=== PATIENT | female | born 1990 | race Caucasian/White ===

== ENCOUNTER 2018-05-13 10:30 | Emergency (ER) | payer MEDICAID ==
--- NOTE | 2018-05-13 11:11 | EDPHY ---
H & P Stated Complaint: L ear/head ache Time Seen by Provider: 05/13/18 10:48 HPI/ROS: CHIEF COMPLAINT: Left-sided headache, otalgia HISTORY OF PRESENT ILLNESS: 27-year-old female via private vehicle complaining of atraumatic left otalgia and left headache, for the past 1 week with new onset tinnitus. No URI symptoms. No sore throat. No otorrhea. No hearing loss. She is followed with screening MRIs every 2 years, last obtained in 2016 at [facility] given her family history of intracranial malignancy. The studies have been negative. PRIMARY CARE PROVIDER: REVIEW OF SYSTEMS: 10 systems reviewed and negative with the exception of the elements mentioned in the history of present illness PAST MEDICAL & SURGICAL HISTORY: No pertinent medical or surgical history SOCIAL HISTORY: Nonsmoker FAMILY HISTORY: Father and paternal grandfather both history of intracranial malignancy PHYSICAL EXAM (Prior to examination, patient consented to physical exam, hands were washed and my usual and customary physical exam procedures followed) 1) GENERAL: Well-developed, well-nourished, alert and oriented. Appears to be in no acute distress. 2) HEAD: Normocephalic, atraumatic 3) HEENT: Pupils equal, round, reactive to light bilaterally. Sclera anicteric. Nasopharynx, oropharynx, clear, no lesions. Moist Mucous membranes. No tonsillar enlargement or exudate. No trismus or drooling. No tenderness to percussion of the frontal or maxillary sinuses. Bilateral ear:, nonbulging non erythematous tympanic membrane with no effusion. No pain with movement of the auricle. Hearing symmetrical. 4) NECK: Full range of motion, no meningeal signs. 5) LUNGS: Clear auscultation bilaterally, no wheezes, no rhonchi, no retractions. 6) HEART: Regular rate and rhythm, no murmur, no heave, no gallop. 7) ABDOMEN: No guarding, no rebound, no focal tenderness, negative McBurney's, negative Shetty's, negative Rovsing's, negative peritoneal sign, 8) MUSCULOSKELETAL: Moving all extremities, no focal areas of tenderness, no obvious trauma. No peripheral edema or discoloration. 9) BACK: No CVA tenderness, no midline vertebral tenderness, no fluctuance, no step-off, no obvious trauma, no visual or palpable abnormality. 10) SKIN: No rash, no petechiae. 11) Psychiatric: Patient is oriented X 3, there is no agitation. 12) NEURO: Awake, alert, and oriented to person, place and time. Answers questions appropriately. There were no obvious focal neurologic abnormalities. No cerebellar dysfunction. Cranial nerves 2 through to 12 intact. Normal steady gait. Upper and lower extremities bilaterally with strength 5 / 5, reflexes 2+. DIFFERENTIAL DIAGNOSIS: In no particular order include but limited to acute sinusitis, otitis media, otitis externa, mastoiditis, acoustic neuroma, intracranial malignancy - Personal History LMP (Females 10-55): 15-21 Days Ago Current Tetanus/Diphtheria Vaccine: Yes - Medical/Surgical History Hx Asthma: No Hx Chronic Respiratory Disease: Yes Hx Diabetes: No Hx Cardiac Disease: No Hx Renal Disease: No Hx Cirrhosis: No Hx Alcoholism: No Other PMH: Churg struass syndrome, - Social History Smoking Status: Never smoked Constitutional: Initial Vital Signs Temperature (C) 36.7 C 05/13/18 10:41 Heart Rate 67 05/13/18 10:41 Respiratory Rate 18 05/13/18 10:41 Blood Pressure 127/96 H 05/13/18 10:41 O2 Sat (%) 96 05/13/18 10:41 O2 Delivery Mode Room Air Allergies/Adverse Reactions: amoxicillin Allergy (Verified 05/13/18 10:45) Penicillins Allergy (Verified 05/13/18 10:45) Sulfa (Sulfonamide Antibiotics) Allergy (Verified 05/13/18 10:45) Home Medications: Medication Instructions Recorded Benadryl 05/13/18 Nucala 05/13/18 Prednisone 05/13/18 Proair Hfa 05/13/18 Qvar Redihaler 05/13/18 Spiriva Handihaler 05/13/18 Symbicort 80-4.5 Mcg Inhaler 05/13/18 Medical Decision Making - Diagnostics Imaging Results: Imaging Impressions Brain MRI 05/13/18 11:11 Impression: Normal MR of the brain and IAC's . No evidence for left IAC schwannoma. Images reviewed myself ED Course/Re-evaluation: 11:09 a.m.: Care of patient under supervision of secondary supervising physician Dr Isaacs with whom I discussed case at this time. Given the patient's significant family history of intracranial malignancy, given her lack of obvious signs of infection such as otitis media otitis externa, new onset pain, new onset tinnitus, recommended MRI. Indications risks benefits discussed with patient and she consents. 12:51 p.m.: Re-evaluation discussed her normal MRI no evidence of malignancy no evidence of schwannoma. She remains with an intact neurologic examination. We discussed possible etiologies for symptoms. Wound recommend Sudafed for decongestion. - Data Points Laboratory Results: Laboratory Results 05/13/18 11:25 05/13/18 11:25 05/13/18 05/13/18 05/13/18 11:25 11:25 11:25 WBC 10.39 10^3/uL H 10^3/uL (3.80-9.50) RBC 4.80 10^6/uL 10^6/uL (4.18-5.33) Hgb 14.7 g/dL g/dL (12.6-16.3) Hct 42.5 % % (38.0-47.0) MCV 88.5 fL fL (81.5-99.8) MCH 30.6 pg pg (27.9-34.1) MCHC 34.6 g/dL g/dL (32.4-36.7) RDW 12.6 % % (11.5-15.2) Plt Count 256 10^3/uL 10^3/uL (150-400) MPV 10.6 fL fL (8.7-11.7) Neut % (Auto) 93.9 % H % (39.3-74.2) Lymph % (Auto) 4.3 % L % (15.0-45.0) Garrard % (Auto) 0.8 % L % (4.5-13.0) Eos % (Auto) 0.0 % L % (0.6-7.6) Baso % (Auto) 0.3 % % (0.3-1.7) Nucleat RBC Rel Count 0.0 % % (0.0-0.2) Absolute Neuts (auto) 9.76 10^3/uL H 10^3/uL (1.70-6.50) Absolute Lymphs (auto) 0.45 10^3/uL L 10^3/uL (1.00-3.00) Absolute Monos (auto) 0.08 10^3/uL L 10^3/uL (0.30-0.80) Absolute Eos (auto) 0.00 10^3/uL L 10^3/uL (0.03-0.40) Absolute Basos (auto) 0.03 10^3/uL 10^3/uL (0.02-0.10) Absolute Nucleated RBC 0.00 10^3/uL 10^3/uL (0-0.01) Immature Gran % 0.7 % % (0.0-1.1) Immature Gran # 0.07 10^3/uL 10^3/uL (0.00-0.10) RBC/WBC/PLT Morphology TNP Platelet Estimate TNP Sodium 139 mEq/L mEq/L (135-145) Potassium 4.3 mEq/L mEq/L (3.3-5.0) Chloride 107 mEq/L mEq/L (97-110) Carbon Dioxide 21 mEq/l L mEq/l (22-31) Anion Gap 11 mEq/L mEq/L (8-16) BUN 15 mg/dL mg/dL (7-23) Creatinine 0.8 mg/dL mg/dL (0.6-1.0) Estimated GFR > 60 Glucose 102 mg/dL H mg/dL (70-100) Calcium 9.4 mg/dL mg/dL (8.5-10.4) Beta HCG, Qual NEGATIVE Departure - Departure Disposition: Home, Routine, Self-Care Clinical Impression: Headache Qualifiers: Headache type: other headache syndrome Qualified Code(s): G44.89 - Other headache syndrome Condition: Fair Instructions: Acute Headache (ED) Additional Instructions: THANK YOU FOR YOUR VISIT TO OUR EMERGENCY DEPARTMENT (ED). YOU WERE SEEN TODAY BECAUSE OF A HEADACHE. YOU MAY HAVE HAD LAB TESTS, A CT SCAN, MRI OR EVEN A LUMBAR PUNCTURE (COMMONLY REFERRED TO A SPINAL TAP). WE CANNOT ALWAYS FIND THE EXACT CAUSE OF YOUR SYMPTOMS DURING YOUR VISIT TO THE ED. PLEASE FOLLOW UP WITH YOUR DOCTOR WITHIN 24 HOURS TO BE RECHECKED. RETURN TO THE ED IMMEDIATELY IF YOUR HEADACHE WORSENS, IF YOU DEVELOP A FEVER, NECK PAIN OR NECK STIFFNESS, OR IF YOU BECOME CONFUSED OR ABNORMALLY DROWSY. . Your MRI today was negative Referrals: Leonard Longoria MD [Medical Doctor] - As per Instructions
[2018-05-13 11:35] LABS: PLATELET COUNT 256 10^3/uL (150-400)
[2018-05-13] MEDS ORDERED: GADOBUTROL 10 ML VIAL IVP ONE (11:38)
[2018-05-13 12:36] VITALS: BP 113/80
== END 2018-05-13 13:16 | disposition home or self-care (01) ==
DX: R51 Headache (principal)
CPT/HCPCS: A9585